=== PATIENT | male | born 1940 | race Two or more races ===

== ENCOUNTER 2024-09-20 10:49 | Emergency (ER) | payer OTHER ==
[~2024-09-20] VITALS: Ht 160 cm; Wt 64.4 kg
[2024-09-20] MEDS ORDERED: SYNTHROID88 MCG PO (11:21)
[2024-09-20] MEDS ORDERED: COZAAR25 MG PO (11:21)
[2024-09-20] MEDS ORDERED: NORVASC5 MG PO (11:21)
[2024-09-20] MEDS ORDERED: XTANDI40 MG PO (11:22)
[2024-09-20] MEDS ORDERED: CEFTRIAXONE SODIUM 1,000 MG VIAL IV STA (12:10)
[2024-09-20] MEDS ORDERED: GENTAMICIN SULFATE 0.15 MG/DR DROPS 5ML OP STA (12:11)
[2024-09-20 13:04] LABS: HEMATOCRIT 37.6 % (39.0-48.0); HEMOGLOBIN 13.1 g/dL (13-16.00); MEAN CELL VOLUME 87.5 fL (80.0-100.00); MEAN CORPUSCULAR HEMOGLOBIN 30.4 pg (27.00-32.0); MEAN CORPUSCULAR HGB CONC 34.7 g/dl (32.0-36.0); PLATELET COUNT 306 K/uL (150-450); RED CELL DISTRIBUTION WIDTH 13.3 % (11.5-14.5)
== END 2024-09-20 13:25 | disposition home or self-care (01) ==
LOC: ER 10:49
PROVIDERS: General Practice
DX: L03.213 Periorbital cellulitis (principal); H10.30 Unspecified acute conjunctivitis, unspecified eye
CPT/HCPCS: 36415; 96365; 99282; J0696